=== PATIENT | female | born 1990 | race Two or more races ===

== ENCOUNTER → 2020-10-11 | Emergency (ER) | payer BC ==
[~2020-10-11] VITALS: Ht 172.7 cm; Wt 70.3 kg
[~2020-10-11] MED LIST: ACETAMINOPHEN325 M1; VISTARIL25 MG PO
== END | disposition home or self-care (01) ==
LOC: ER 00:21
DX: E07.89 Other specified disorders of thyroid (principal); F41.8 Other specified anxiety disorders; Z03.818 Encounter for observation for suspected exposure to other biological agents ruled out; R00.2 Palpitations; R10.84 Generalized abdominal pain; R11.2 Nausea with vomiting, unspecified